=== PATIENT | male | born 1975 | race Hispanic/Latino ===

== ENCOUNTER 2020-06-03 02:33 | Inpatient (IN) | payer OTHER ==
[2020-06-03] VITALS (22 sets, daily range): BP systolic 107–129; BP diastolic 56–88
[~2020-06-03] VITALS: Ht 177.8 cm; Wt 113.9 kg
[2020-06-03] MEDS ORDERED: AZITHROMYCIN 500MG/NS 250 ML 250 ML IV STA (02:38)
[2020-06-03] MEDS ORDERED: KETOROLAC TROMETHAMINE 30 MG/ML VIAL IV STA (02:38)
[2020-06-03] MEDS ORDERED: DEXAMETHASONE SOD PHOS 10 MG/1 ML VIAL IV ONE (02:45)
[2020-06-03] MEDS ORDERED: CEFTRIAXONE SOD 1 GM/50 ML BAG IV ONE (02:45)
[2020-06-03] MEDS ORDERED: ACETAMINOPHEN 325 MG TAB PO ONE (02:45)
[2020-06-03 02:52] LABS: BASOPHILS % 0.1 % (0.0-1.0); HEMATOCRIT 42.9 % (38.2-49.6); HEMOGLOBIN 14.4 g/dL (14.0-18.0); LYMPHOCYTES # (AUTO) 0.6 (1.0-3.2); LYMPHOCYTES % 7.5 % (18.0-39.1); MEAN CORPUSCULAR HEMOGLOBIN 29.3 pg (28-32); MEAN CORPUSCULAR HGB CONC 33.6 g/dL (31-35); MEAN CORPUSCULAR VOLUME 87.2 fL (81-99); MONOCYTES # (AUTO) 0.3 (0.2-0.8); MONOCYTES % 4.5 % (4.4-11.3); NEUTROPHILS # (AUTO) 6.4 (2.1-6.9); NEUTROPHILS % 87.5 % (38.7-80.0); PLATELET COUNT 265 x10e3/uL (140-360); RED BLOOD COUNT 4.92 x10e6/uL (4.3-5.7); RED CELL DISTRIBUTION WIDTH 13.4 % (11.7-14.4)
[2020-06-03] MEDS ORDERED: SODIUM CHLORIDE 0.9% 50ML 50 ML ONE ×2 (03:04→07:28)
[2020-06-03] MEDS ORDERED: CEFTRIAXONE SOD 1 GM VIAL ONE (03:04)
[2020-06-03 03:11] LABS: ALANINE AMINOTRANSFERASE 39 IU/L (0-55); ALBUMIN 2.8 g/dL (3.5-5.0); ALBUMIN/GLOBULIN RATIO 0.5 (0.8-2.0); ALKALINE PHOSPHATASE 78 IU/L (40-150); ANION GAP 14.3 mmol/L (8-16); BLOOD UREA NITROGEN 6 mg/dL (7-26); BUN/CREATININE RATIO 7 (6-25); CARBON DIOXIDE 28 mmol/L (22-29); CHLORIDE 95 mmol/L (98-107); CREATININE, SERUM 0.92 mg/dL (0.72-1.25); EST GLOMERULAR FILTRATION RATE > 60 ML/MIN (60-); GLUCOSE 149 mg/dL (74-118); POTASSIUM 3.3 mmol/L (3.5-5.1); SODIUM 134 mmol/L (136-145)
[2020-06-03 03:15] LABS: B-TYPE NATRIURETIC PEPTIDE2 45.5 pg/mL (0-100)
[2020-06-03] MEDS ORDERED: ONDANSETRON HCL INJ 2MG/ML 2ML 2 MG/ML VIAL IV STA ×2 (03:39→06:20)
[2020-06-03] MEDS ORDERED: DONNATAL/LIDOCAINE/MAALOX 30 ML SUSP PO STA (03:39)
[2020-06-03] MEDS ORDERED: FENTANYL CITRATE/PF 100MCG/2 ML INJ IV ONE (03:45)
[2020-06-03] MEDS ORDERED: FENTANYL CITRATE/PF 100MCG/2 ML INJ ONE (03:50)
[2020-06-03] MEDS ORDERED: ONDANSETRON HCL INJ 2MG/ML 2ML 2 MG/ML VIAL ONE (03:51)
[2020-06-03] MEDS ORDERED: ENOXAPARIN SOD INJ 60 MG/0.6 ML SYR SC STA (04:55)
[2020-06-03 05:33] LABS: INR 0.93
[2020-06-03 05:34] LABS: PARTIAL THROMBOPLASTIN TIME 39.1 seconds (23.8-35.5)
[2020-06-03 05:39] LABS: AMYLASE 71 U/L (25-125); LIPASE 91 U/L (8-78)
[2020-06-03] MEDS ORDERED: ENOXAPARIN SOD INJ 40 MG/0.4 ML SYR SC STA (06:18)
[2020-06-03] MEDS: METOCLOPRAMIDE HCL 10 MG TAB PO SCH ×3 (06:30→17:34)
[2020-06-03] MEDS ORDERED: ENOXAPARIN SOD INJ 40 MG/0.4 ML SYR SC ONE (06:31)
[2020-06-03] MEDS ORDERED: IOPAMIDOL 370 MG/ML 200 ML INFUS..BTL INJ ONE (07:28)
[2020-06-03] MEDS: DICYCLOMINE HCL 20 MG TAB PO SCH ×4 (09:28→20:30)
[2020-06-03] MEDS ORDERED: CEFTRIAXONE SOD 1 GM/50 ML BAG IV SCH (10:45)
[2020-06-03] MEDS: CEFTRIAXONE SOD 1 GM in SODIUM CHLORIDE 0.9% 50ML 50 ML IV SCH (11:53)
[2020-06-03] MEDS: DEXAMETHASONE SOD PHOS 10 MG/1 ML VIAL IV SCH (12:21)
[2020-06-03] MEDS: AZITHROMYCIN 500MG/NS 250 ML 250 ML IV SCH (12:21)
[2020-06-03] MEDS ORDERED: ZOLPIDEM TARTRATE 5 MG TAB PO PRN (13:00)
[2020-06-03] MEDS ORDERED: REMDESIVIR 200MG/NS 100ML 200 MG in SODIUM CHLORIDE 0.9% 100 ML 100 ML IV ONE (15:00)
[2020-06-03] MEDS: ENOXAPARIN SODIUM INJ 100 MG/ML SYR SC SCH (17:34)
[2020-06-03] MEDS: ASCORBIC ACID 500 MG TAB PO SCH (17:34)
[2020-06-03] MEDS: GUAIFENESIN/CODEINE 10 ML CUP PO PRN (18:18)
[2020-06-04] VITALS (20 sets, daily range): BP systolic 104–138; BP diastolic 54–101
[2020-06-04] MEDS: METOCLOPRAMIDE HCL 10 MG TAB PO SCH ×4 (00:13→17:16)
[2020-06-04] MEDS: CEFTRIAXONE SOD 1 GM in SODIUM CHLORIDE 0.9% 50ML 50 ML IV SCH ×3 (00:13→23:19)
[2020-06-04] MEDS: ENOXAPARIN SODIUM INJ 100 MG/ML SYR SC SCH ×2 (05:53→17:16)
[2020-06-04 08:22] LABS: BASOPHILS % 0.1 % (0.0-1.0); HEMATOCRIT 40.4 % (38.2-49.6); HEMOGLOBIN 13.4 g/dL (14.0-18.0); LYMPHOCYTES # (AUTO) 0.6 (1.0-3.2); MEAN CORPUSCULAR HEMOGLOBIN 28.9 pg (28-32); MEAN CORPUSCULAR HGB CONC 33.2 g/dL (31-35); MEAN CORPUSCULAR VOLUME 87.1 fL (81-99); MONOCYTES # (AUTO) 0.7 (0.2-0.8); MONOCYTES % 6.4 % (4.4-11.3); NEUTROPHILS # (AUTO) 9.2 (2.1-6.9); NEUTROPHILS % 86.7 % (38.7-80.0); PLATELET COUNT 328 x10e3/uL (140-360); RED BLOOD COUNT 4.64 x10e6/uL (4.3-5.7); RED CELL DISTRIBUTION WIDTH 13.8 % (11.7-14.4)
[2020-06-04] MEDS: DICYCLOMINE HCL 20 MG TAB PO SCH ×4 (08:34→20:44)
[2020-06-04] MEDS: ASCORBIC ACID 500 MG TAB PO SCH ×2 (08:34→17:16)
[2020-06-04] MEDS: ZINC SULFATE 220 MG CAP PO SCH (08:34)
[2020-06-04] MEDS: DEXAMETHASONE SOD PHOS 10 MG/1 ML VIAL IV SCH (08:34)
[2020-06-04 08:38] LABS: ALANINE AMINOTRANSFERASE 34 IU/L (0-55); ALBUMIN 2.3 g/dL (3.5-5.0); ALBUMIN/GLOBULIN RATIO 0.5 (0.8-2.0); ALKALINE PHOSPHATASE 65 IU/L (40-150); BLOOD UREA NITROGEN 11 mg/dL (7-26); BUN/CREATININE RATIO 14 (6-25); CALCIUM 8.1 mg/dL (8.4-10.2); CARBON DIOXIDE 25 mmol/L (22-29); CHLORIDE 100 mmol/L (98-107); CREATININE, SERUM 0.77 mg/dL (0.72-1.25); EST GLOMERULAR FILTRATION RATE > 60 ML/MIN (60-); GLUCOSE 147 mg/dL (74-118); SODIUM 136 mmol/L (136-145)
[2020-06-04 09:00] LABS: CREATINE KINASE MB 0.5 ng/mL (0-5.0)
[2020-06-04] MEDS: AZITHROMYCIN 500MG/NS 250 ML 250 ML IV SCH (12:30)
[2020-06-04] MEDS: GUAIFENESIN/CODEINE 10 ML CUP PO PRN ×4 (12:45→17:50)
[2020-06-04] MEDS: REMDESIVIR 100MG/NS 100ML 100 MG in SODIUM CHLORIDE 0.9% 100 ML 100 ML IV SCH (15:31)
[2020-06-05] VITALS (19 sets, daily range): BP systolic 107–132; BP diastolic 64–83
[2020-06-05] MEDS: METOCLOPRAMIDE HCL 10 MG TAB PO SCH ×5 (00:04→23:51)
[2020-06-05] MEDS: GUAIFENESIN/CODEINE 10 ML CUP PO PRN ×3 (01:00→20:57)
[2020-06-05] MEDS: ENOXAPARIN SODIUM INJ 100 MG/ML SYR SC SCH ×2 (06:29→18:01)
[2020-06-05 07:27] LABS: BASOPHILS % 0.2 % (0.0-1.0); HEMATOCRIT 39.2 % (38.2-49.6); HEMOGLOBIN 12.8 g/dL (14.0-18.0); LYMPHOCYTES # (AUTO) 0.8 (1.0-3.2); LYMPHOCYTES % 6.4 % (18.0-39.1); MEAN CORPUSCULAR HEMOGLOBIN 29.2 pg (28-32); MEAN CORPUSCULAR HGB CONC 32.7 g/dL (31-35); MEAN CORPUSCULAR VOLUME 89.5 fL (81-99); MONOCYTES # (AUTO) 0.9 (0.2-0.8); MONOCYTES % 6.7 % (4.4-11.3); NEUTROPHILS # (AUTO) 11.1 (2.1-6.9); NEUTROPHILS % 85.6 % (38.7-80.0); PLATELET COUNT 333 x10e3/uL (140-360); RED BLOOD COUNT 4.38 x10e6/uL (4.3-5.7); RED CELL DISTRIBUTION WIDTH 13.8 % (11.7-14.4)
[2020-06-05 07:33] LABS: ALANINE AMINOTRANSFERASE 37 IU/L (0-55); ALBUMIN 2.3 g/dL (3.5-5.0); ALBUMIN/GLOBULIN RATIO 0.5 (0.8-2.0); ALKALINE PHOSPHATASE 72 IU/L (40-150); ANION GAP 15.1 mmol/L (8-16); BLOOD UREA NITROGEN 22 mg/dL (7-26); BUN/CREATININE RATIO 30 (6-25); CALCIUM 7.8 mg/dL (8.4-10.2); CARBON DIOXIDE 28 mmol/L (22-29); CHLORIDE 101 mmol/L (98-107); CREATININE, SERUM 0.73 mg/dL (0.72-1.25); EST GLOMERULAR FILTRATION RATE > 60 ML/MIN (60-); GLUCOSE 142 mg/dL (74-118); POTASSIUM 4.1 mmol/L (3.5-5.1); SODIUM 140 mmol/L (136-145)
[2020-06-05 08:06] LABS: CREATINE KINASE MB 1.3 ng/mL (0-5.0)
[2020-06-05] MEDS ORDERED: LACTATED RINGER'S 1,000 ML INJ ONE (10:00)
[2020-06-05] MEDS: ZINC SULFATE 220 MG CAP PO SCH (10:04)
[2020-06-05] MEDS: DEXAMETHASONE SOD PHOS 10 MG/1 ML VIAL IV SCH (10:04)
[2020-06-05] MEDS: ASCORBIC ACID 500 MG TAB PO SCH ×2 (10:04→18:01)
[2020-06-05] MEDS: DICYCLOMINE HCL 20 MG TAB PO SCH ×4 (10:04→20:59)
[2020-06-05] MEDS: AZITHROMYCIN 500MG/NS 250 ML 250 ML IV SCH (11:05)
[2020-06-05] MEDS: PIPERACILLIN/TAZOBAC 3.375 GM in SODIUM CHLORIDE 0.9% 50ML 50 ML IV SCH ×3 (14:26→23:51)
[2020-06-05] MEDS: REMDESIVIR 100MG/NS 100ML 100 MG in SODIUM CHLORIDE 0.9% 100 ML 100 ML IV SCH (15:03)
[2020-06-06] VITALS (25 sets, daily range): BP systolic 110–138; BP diastolic 45–91
[2020-06-06] MEDS: GUAIFENESIN/CODEINE 10 ML CUP PO PRN ×2 (03:00→20:07)
[2020-06-06] MEDS: PIPERACILLIN/TAZOBAC 3.375 GM in SODIUM CHLORIDE 0.9% 50ML 50 ML IV SCH ×4 (06:31→23:13)
[2020-06-06] MEDS: ENOXAPARIN SODIUM INJ 100 MG/ML SYR SC SCH ×2 (06:45→16:40)
[2020-06-06] MEDS: METOCLOPRAMIDE HCL 10 MG TAB PO SCH ×4 (06:45→23:13)
[2020-06-06 07:05] LABS: BASOPHILS % 0.3 % (0.0-1.0); EOSINOPHILS % 0.2 % (0.0-6.0); HEMATOCRIT 38.1 % (38.2-49.6); HEMOGLOBIN 12.4 g/dL (14.0-18.0); LYMPHOCYTES # (AUTO) 1.1 (1.0-3.2); LYMPHOCYTES % 8.8 % (18.0-39.1); MEAN CORPUSCULAR HGB CONC 32.5 g/dL (31-35); MONOCYTES # (AUTO) 0.9 (0.2-0.8); MONOCYTES % 7.1 % (4.4-11.3); NEUTROPHILS # (AUTO) 9.9 (2.1-6.9); NEUTROPHILS % 81.3 % (38.7-80.0); PLATELET COUNT 396 x10e3/uL (140-360); RED BLOOD COUNT 4.28 x10e6/uL (4.3-5.7); RED CELL DISTRIBUTION WIDTH 13.6 % (11.7-14.4)
[2020-06-06 07:44] LABS: ALANINE AMINOTRANSFERASE 64 IU/L (0-55); ALBUMIN 2.3 g/dL (3.5-5.0); ALBUMIN/GLOBULIN RATIO 0.5 (0.8-2.0); ALKALINE PHOSPHATASE 64 IU/L (40-150); ANION GAP 13.6 mmol/L (8-16); BLOOD UREA NITROGEN 17 mg/dL (7-26); BUN/CREATININE RATIO 23 (6-25); CARBON DIOXIDE 27 mmol/L (22-29); CHLORIDE 103 mmol/L (98-107); CREATININE, SERUM 0.73 mg/dL (0.72-1.25); EST GLOMERULAR FILTRATION RATE > 60 ML/MIN (60-); GLUCOSE 132 mg/dL (74-118); POTASSIUM 4.6 mmol/L (3.5-5.1); SODIUM 139 mmol/L (136-145)
[2020-06-06] MEDS: DICYCLOMINE HCL 20 MG TAB PO SCH ×4 (10:27→20:07)
[2020-06-06] MEDS: DEXAMETHASONE SOD PHOS 10 MG/1 ML VIAL IV SCH (10:27)
[2020-06-06] MEDS: ZINC SULFATE 220 MG CAP PO SCH (10:27)
[2020-06-06] MEDS: ASCORBIC ACID 500 MG TAB PO SCH ×2 (10:27→16:40)
[2020-06-06] MEDS: AZITHROMYCIN 500MG/NS 250 ML 250 ML IV SCH (11:57)
[2020-06-06] MEDS: REMDESIVIR 100MG/NS 100ML 100 MG in SODIUM CHLORIDE 0.9% 100 ML 100 ML IV SCH (15:56)
[2020-06-07] VITALS (25 sets, daily range): BP systolic 100–143; BP diastolic 62–83
[2020-06-07] MEDS: METOCLOPRAMIDE HCL 10 MG TAB PO SCH ×4 (05:42→23:22)
[2020-06-07] MEDS: PIPERACILLIN/TAZOBAC 3.375 GM in SODIUM CHLORIDE 0.9% 50ML 50 ML IV SCH ×4 (05:42→23:22)
[2020-06-07] MEDS: ENOXAPARIN SODIUM INJ 100 MG/ML SYR SC SCH ×2 (05:42→17:13)
[2020-06-07] MEDS: DEXAMETHASONE SOD PHOS 10 MG/1 ML VIAL IV SCH (08:08)
[2020-06-07] MEDS: ASCORBIC ACID 500 MG TAB PO SCH ×2 (08:08→16:11)
[2020-06-07] MEDS: DICYCLOMINE HCL 20 MG TAB PO SCH ×4 (08:08→20:22)
[2020-06-07] MEDS: ZINC SULFATE 220 MG CAP PO SCH (08:08)
[2020-06-07] MEDS: GUAIFENESIN/CODEINE 10 ML CUP PO PRN (08:09)
[2020-06-07] MEDS: AZITHROMYCIN 500MG/NS 250 ML 250 ML IV SCH (12:06)
[2020-06-07] MEDS: REMDESIVIR 100MG/NS 100ML 100 MG in SODIUM CHLORIDE 0.9% 100 ML 100 ML IV SCH (15:04)
[2020-06-08] VITALS (24 sets, daily range): BP systolic 96–129; BP diastolic 54–80
[2020-06-08] MEDS: ENOXAPARIN SODIUM INJ 100 MG/ML SYR SC SCH ×2 (05:56→17:15)
[2020-06-08] MEDS: METOCLOPRAMIDE HCL 10 MG TAB PO SCH ×4 (05:56→23:29)
[2020-06-08] MEDS: PIPERACILLIN/TAZOBAC 3.375 GM in SODIUM CHLORIDE 0.9% 50ML 50 ML IV SCH ×4 (05:56→23:29)
[2020-06-08] MEDS: ASCORBIC ACID 500 MG TAB PO SCH ×2 (08:18→16:14)
[2020-06-08] MEDS: DICYCLOMINE HCL 20 MG TAB PO SCH ×4 (08:18→21:11)
[2020-06-08] MEDS: DEXAMETHASONE SOD PHOS 10 MG/1 ML VIAL IV SCH (08:18)
[2020-06-08] MEDS: ZINC SULFATE 220 MG CAP PO SCH (08:18)
[2020-06-08] MEDS: AZITHROMYCIN 500MG/NS 250 ML 250 ML IV SCH (11:25)
[2020-06-08] MEDS: GUAIFENESIN/CODEINE 10 ML CUP PO PRN ×2 (11:33→17:43)
[2020-06-09] VITALS (25 sets, daily range): BP systolic 95–147; BP diastolic 48–99
[2020-06-09] MEDS: ENOXAPARIN SODIUM INJ 100 MG/ML SYR SC SCH ×2 (05:52→17:21)
[2020-06-09] MEDS: PIPERACILLIN/TAZOBAC 3.375 GM in SODIUM CHLORIDE 0.9% 50ML 50 ML IV SCH ×4 (05:52→23:29)
[2020-06-09] MEDS: METOCLOPRAMIDE HCL 10 MG TAB PO SCH ×4 (05:52→23:29)
[2020-06-09 06:18] LABS: BASOPHILS # (AUTO) 0.1 (0.0-0.1); BASOPHILS % 0.5 % (0.0-1.0); EOSINOPHILS # (AUTO) 0.2 (0.0-0.4); EOSINOPHILS % 0.9 % (0.0-6.0); HEMATOCRIT 36.1 % (38.2-49.6); HEMOGLOBIN 11.9 g/dL (14.0-18.0); LYMPHOCYTES # (AUTO) 1.4 (1.0-3.2); LYMPHOCYTES % 8.3 % (18.0-39.1); MEAN CORPUSCULAR HEMOGLOBIN 29.6 pg (28-32); MEAN CORPUSCULAR VOLUME 89.8 fL (81-99); MONOCYTES # (AUTO) 1.5 (0.2-0.8); MONOCYTES % 8.9 % (4.4-11.3); NEUTROPHILS # (AUTO) 12.8 (2.1-6.9); NEUTROPHILS % 75.4 % (38.7-80.0); PLATELET COUNT 485 x10e3/uL (140-360); RED BLOOD COUNT 4.02 x10e6/uL (4.3-5.7); RED CELL DISTRIBUTION WIDTH 13.7 % (11.7-14.4)
[2020-06-09 06:51] LABS: ALANINE AMINOTRANSFERASE 77 IU/L (0-55); ALBUMIN 2.2 g/dL (3.5-5.0); ALBUMIN/GLOBULIN RATIO 0.5 (0.8-2.0); ALKALINE PHOSPHATASE 86 IU/L (40-150); ANION GAP 12.4 mmol/L (8-16); BLOOD UREA NITROGEN 21 mg/dL (7-26); BUN/CREATININE RATIO 27 (6-25); CALCIUM 8.3 mg/dL (8.4-10.2); CARBON DIOXIDE 26 mmol/L (22-29); CHLORIDE 104 mmol/L (98-107); CREATININE, SERUM 0.77 mg/dL (0.72-1.25); EST GLOMERULAR FILTRATION RATE > 60 ML/MIN (60-); GLUCOSE 109 mg/dL (74-118); POTASSIUM 4.4 mmol/L (3.5-5.1); SODIUM 138 mmol/L (136-145)
[2020-06-09] MEDS: ASCORBIC ACID 500 MG TAB PO SCH ×2 (10:13→17:21)
[2020-06-09] MEDS: DICYCLOMINE HCL 20 MG TAB PO SCH ×4 (10:13→20:03)
[2020-06-09] MEDS: ZINC SULFATE 220 MG CAP PO SCH (10:13)
[2020-06-09] MEDS: DEXAMETHASONE SOD PHOS 10 MG/1 ML VIAL IV SCH (10:13)
[2020-06-09] MEDS ORDERED: LACTATED RINGER'S 500 ML INJ ONE (14:15)
[2020-06-09] MEDS: AZITHROMYCIN 500MG/NS 250 ML 250 ML IV SCH (14:19)
[2020-06-10] VITALS (21 sets, daily range): BP systolic 97–117; BP diastolic 61–81
[2020-06-10] MEDS: METOCLOPRAMIDE HCL 10 MG TAB PO SCH ×4 (05:47→23:48)
[2020-06-10] MEDS: ENOXAPARIN SODIUM INJ 100 MG/ML SYR SC SCH ×2 (05:47→18:59)
[2020-06-10] MEDS: PIPERACILLIN/TAZOBAC 3.375 GM in SODIUM CHLORIDE 0.9% 50ML 50 ML IV SCH ×4 (05:47→23:48)
[2020-06-10 06:14] LABS: BASOPHILS % 0.3 % (0.0-1.0); EOSINOPHILS # (AUTO) 0.1 (0.0-0.4); EOSINOPHILS % 0.6 % (0.0-6.0); HEMATOCRIT 36.5 % (38.2-49.6); HEMOGLOBIN 11.8 g/dL (14.0-18.0); LYMPHOCYTES # (AUTO) 1.7 (1.0-3.2); LYMPHOCYTES % 10.6 % (18.0-39.1); MEAN CORPUSCULAR HEMOGLOBIN 29.5 pg (28-32); MEAN CORPUSCULAR HGB CONC 32.3 g/dL (31-35); MEAN CORPUSCULAR VOLUME 91.3 fL (81-99); MONOCYTES # (AUTO) 1.3 (0.2-0.8); MONOCYTES % 8.3 % (4.4-11.3); NEUTROPHILS # (AUTO) 11.7 (2.1-6.9); NEUTROPHILS % 75.2 % (38.7-80.0); PLATELET COUNT 433 x10e3/uL (140-360); RED CELL DISTRIBUTION WIDTH 13.8 % (11.7-14.4)
[2020-06-10 06:44] LABS: ALANINE AMINOTRANSFERASE 65 IU/L (0-55); ALBUMIN 2.3 g/dL (3.5-5.0); ALBUMIN/GLOBULIN RATIO 0.5 (0.8-2.0); ALKALINE PHOSPHATASE 87 IU/L (40-150); ANION GAP 11.2 mmol/L (8-16); BLOOD UREA NITROGEN 21 mg/dL (7-26); BUN/CREATININE RATIO 30 (6-25); CALCIUM 8.1 mg/dL (8.4-10.2); CARBON DIOXIDE 25 mmol/L (22-29); CHLORIDE 103 mmol/L (98-107); EST GLOMERULAR FILTRATION RATE > 60 ML/MIN (60-); GLUCOSE 107 mg/dL (74-118); POTASSIUM 4.2 mmol/L (3.5-5.1); SODIUM 135 mmol/L (136-145)
[2020-06-10] MEDS: DICYCLOMINE HCL 20 MG TAB PO SCH ×4 (08:04→20:14)
[2020-06-10] MEDS: DEXAMETHASONE SOD PHOS 10 MG/1 ML VIAL IV SCH (08:04)
[2020-06-10] MEDS: ASCORBIC ACID 500 MG TAB PO SCH ×2 (08:04→18:59)
[2020-06-10] MEDS: ZINC SULFATE 220 MG CAP PO SCH (08:04)
[2020-06-10] MEDS: GUAIFENESIN/CODEINE 10 ML CUP PO PRN ×2 (09:00→20:14)
[2020-06-10] MEDS ORDERED: CALCIUM CARBONATE 500 MG CHEWABLE TABS PO PRN (10:00)
[2020-06-10] MEDS: AZITHROMYCIN 500MG/NS 250 ML 250 ML IV SCH (12:00)
[2020-06-10] MEDS: PANTOPRAZOLE 40 MG 10ML VIAL IV SCH (13:15)
[2020-06-11] VITALS (18 sets, daily range): BP systolic 89–126; BP diastolic 39–84
[2020-06-11] MEDS: METOCLOPRAMIDE HCL 10 MG TAB PO SCH ×3 (05:25→17:46)
[2020-06-11] MEDS: PIPERACILLIN/TAZOBAC 3.375 GM in SODIUM CHLORIDE 0.9% 50ML 50 ML IV SCH ×3 (05:25→17:46)
[2020-06-11] MEDS: ENOXAPARIN SODIUM INJ 100 MG/ML SYR SC SCH (06:00)
[2020-06-11 06:49] LABS: BASOPHILS # (AUTO) 0.1 (0.0-0.1); BASOPHILS % 0.3 % (0.0-1.0); EOSINOPHILS % 0.1 % (0.0-6.0); HEMATOCRIT 28.7 % (38.2-49.6); HEMOGLOBIN 9.5 g/dL (14.0-18.0); LYMPHOCYTES # (AUTO) 3.1 (1.0-3.2); LYMPHOCYTES % 8.1 % (18.0-39.1); MEAN CORPUSCULAR HEMOGLOBIN 30.6 pg (28-32); MEAN CORPUSCULAR HGB CONC 33.1 g/dL (31-35); MEAN CORPUSCULAR VOLUME 92.6 fL (81-99); MONOCYTES # (AUTO) 3.1 (0.2-0.8); MONOCYTES % 7.9 % (4.4-11.3); NEUTROPHILS # (AUTO) 29.1 (2.1-6.9); NEUTROPHILS % 75.7 % (38.7-80.0); PLATELET COUNT 709 x10e3/uL (140-360)
[2020-06-11 07:13] LABS: ALBUMIN 2.2 g/dL (3.5-5.0); ALBUMIN/GLOBULIN RATIO 0.5 (0.8-2.0); ANION GAP 14.7 mmol/L (8-16); CALCIUM 8.1 mg/dL (8.4-10.2); CREATININE, SERUM 1.54 mg/dL (0.72-1.25); POTASSIUM 4.7 mmol/L (3.5-5.1)
[2020-06-11] MEDS ORDERED: SODIUM CHLORIDE 0.9% 250ML 250 ML IV ONE (08:15)
[2020-06-11] MEDS ORDERED: HEPARIN 25,000 UNIT 1,500 UNIT in DEXTROSE 5% 250ML 250 ML IV SCH (08:45)
[2020-06-11 08:46] LABS: BASOPHILS # (AUTO) 0.2 (0.0-0.1); BASOPHILS % 0.4 % (0.0-1.0); HEMATOCRIT 24.7 % (38.2-49.6); HEMOGLOBIN 7.9 g/dL (14.0-18.0); LYMPHOCYTES # (AUTO) 3.4 (1.0-3.2); LYMPHOCYTES % 8.3 % (18.0-39.1); MEAN CORPUSCULAR HEMOGLOBIN 29.7 pg (28-32); MEAN CORPUSCULAR VOLUME 92.9 fL (81-99); MONOCYTES # (AUTO) 2.9 (0.2-0.8); NEUTROPHILS # (AUTO) 31.2 (2.1-6.9); NEUTROPHILS % 75.1 % (38.7-80.0); PLATELET COUNT 647 x10e3/uL (140-360); RED BLOOD COUNT 2.66 x10e6/uL (4.3-5.7); RED CELL DISTRIBUTION WIDTH 14.1 % (11.7-14.4)
[2020-06-11] MEDS ORDERED: LACTATED RINGER'S 2,000 ML ONE (08:49)
[2020-06-11] MEDS ORDERED: VANCOMYCIN 250MG/5ML ORAL SOLN PO SCH (09:00)
[2020-06-11] MEDS ORDERED: PANTOPRAZOLE 40 MG 10ML VIAL IV SCH (09:00)
[2020-06-11] MEDS ORDERED: ALTEPLASE RECOMBINANT 2 MG/2 ML VIAL IV PRN (09:15)
[2020-06-11 10:31] LABS: % IRON SATURATION 75 % (15-50); IRON 159 ug/dL (65-175); TOTAL IRON BINDING CAPACITY 211 ug/dL (261-478); TRANSFERRIN 151 mg/dL (174-364)
[2020-06-11 11:01] LABS: INR 1.39
[2020-06-11] MEDS: METRONIDAZOLE 500MG/NS 100ML 100 ML IV SCH ×3 (11:02→23:03)
[2020-06-11] MEDS: PANTOPRAZOLE 40 MG 10ML VIAL IV SCH (11:02)
[2020-06-11] MEDS: ZINC SULFATE 220 MG CAP PO SCH (11:02)
[2020-06-11] MEDS: VANCOMYCIN HCL 125 MG CAPSULE PO SCH ×3 (11:02→22:09)
[2020-06-11] MEDS: ASCORBIC ACID 500 MG TAB PO SCH ×2 (11:02→17:46)
[2020-06-11] MEDS: GUAIFENESIN/CODEINE 10 ML CUP PO PRN (11:13)
[2020-06-11] MEDS: PANTOPRAZOLE INJ 40 MG in SODIUM CHLORIDE 0.9% 50ML 50 ML IV SCH ×3 (12:03→22:15)
[2020-06-11] MEDS: AZITHROMYCIN 500MG/NS 250 ML 250 ML IV SCH (12:39)
[2020-06-11 15:30] LABS: BASOPHILS # (AUTO) 0.1 (0.0-0.1); BASOPHILS % 0.4 % (0.0-1.0); HEMOGLOBIN 9.5 g/dL (14.0-18.0); LYMPHOCYTES # (AUTO) 2.8 (1.0-3.2); LYMPHOCYTES % 8.9 % (18.0-39.1); MEAN CORPUSCULAR HEMOGLOBIN 28.9 pg (28-32); MEAN CORPUSCULAR HGB CONC 32.8 g/dL (31-35); MEAN CORPUSCULAR VOLUME 88.1 fL (81-99); MONOCYTES # (AUTO) 2.1 (0.2-0.8); MONOCYTES % 6.8 % (4.4-11.3); NEUTROPHILS # (AUTO) 23.7 (2.1-6.9); NEUTROPHILS % 76.3 % (38.7-80.0); PLATELET COUNT 450 x10e3/uL (140-360); RED BLOOD COUNT 3.29 x10e6/uL (4.3-5.7); RED CELL DISTRIBUTION WIDTH 14.2 % (11.7-14.4)
[2020-06-11 16:53] LABS: BAND NEUTROPHILS % (MANUAL) 1 %; LYMPHOCYTES % (MANUAL) 4 % (19-48); MONOCYTES % (MANUAL) 10 % (3.4-9.0); NEUTROPHILS % (MANUAL) 78 % (40-74); PLATELET ESTIMATE SLIGHTLY INCREASED; PLATELET MORPHOLOGY COMMENT FEW LARGE; RBC MORPHOLOGY COMMENT NORMAL
[2020-06-11] MEDS ORDERED: ONDANSETRON HCL INJ 2MG/ML 2ML 2 MG/ML VIAL IV STA (18:05)
[2020-06-11] MEDS: SODIUM CHLORIDE 0.9% 1000ML 1,000 ML IV SCH (19:15)
[2020-06-11 21:08] LABS: BASOPHILS # (AUTO) 0.2 (0.0-0.1); BASOPHILS % 0.5 % (0.0-1.0); HEMOGLOBIN 10.6 g/dL (14.0-18.0); LYMPHOCYTES # (AUTO) 3.1 (1.0-3.2); LYMPHOCYTES % 8.6 % (18.0-39.1); MEAN CORPUSCULAR HEMOGLOBIN 29.1 pg (28-32); MEAN CORPUSCULAR HGB CONC 33.1 g/dL (31-35); MEAN CORPUSCULAR VOLUME 87.9 fL (81-99); MONOCYTES # (AUTO) 2.4 (0.2-0.8); MONOCYTES % 6.7 % (4.4-11.3); NEUTROPHILS # (AUTO) 27.7 (2.1-6.9); NEUTROPHILS % 77.7 % (38.7-80.0); PLATELET COUNT 536 x10e3/uL (140-360); RED BLOOD COUNT 3.64 x10e6/uL (4.3-5.7); RED CELL DISTRIBUTION WIDTH 14.7 % (11.7-14.4)
[2020-06-11] MEDS: ZOLPIDEM TARTRATE 5 MG TAB PO PRN (21:25)
[2020-06-11] MEDS: ACETAMINOPHEN 325 MG TAB PO PRN (21:25)
[2020-06-11 21:32] LABS: ALANINE AMINOTRANSFERASE 54 IU/L (0-55); ALBUMIN 2.3 g/dL (3.5-5.0); ALBUMIN/GLOBULIN RATIO 0.6 (0.8-2.0); ALKALINE PHOSPHATASE 71 IU/L (40-150); ANION GAP 12.1 mmol/L (8-16); BLOOD UREA NITROGEN 53 mg/dL (7-26); BUN/CREATININE RATIO 42 (6-25); CALCIUM 7.8 mg/dL (8.4-10.2); CARBON DIOXIDE 21 mmol/L (22-29); CHLORIDE 115 mmol/L (98-107); CREATININE, SERUM 1.26 mg/dL (0.72-1.25); EST GLOMERULAR FILTRATION RATE > 60 ML/MIN (60-); GLUCOSE 219 mg/dL (74-118); POTASSIUM 4.1 mmol/L (3.5-5.1); SODIUM 144 mmol/L (136-145)
[2020-06-11] MEDS ORDERED: PHYTONADIONE 10MG/ML 2 ML ONE (22:15)
[2020-06-11] MEDS ORDERED: PHYTONADIONE 10 MG/ML AMP IV ONE (22:15)
[2020-06-11] MEDS ORDERED: SODIUM CHLORIDE 0.9% 50ML 50 ML ONE (22:24)
[2020-06-11] MEDS ORDERED: HYDROMORPHONE 1MG/1ML INJ IV PRN (23:15)
[2020-06-12] VITALS (23 sets, daily range): BP systolic 98–123; BP diastolic 58–81
[2020-06-12] MEDS: PIPERACILLIN/TAZOBAC 3.375 GM in SODIUM CHLORIDE 0.9% 50ML 50 ML IV SCH ×5 (00:30→23:53)
[2020-06-12] MEDS: METOCLOPRAMIDE HCL 10 MG TAB PO SCH ×5 (00:30→23:57)
[2020-06-12] MEDS: PANTOPRAZOLE INJ 40 MG in SODIUM CHLORIDE 0.9% 50ML 50 ML IV SCH ×4 (02:13→18:07)
[2020-06-12] MEDS: SODIUM CHLORIDE 0.9% 1000ML 1,000 ML IV SCH (05:21)
[2020-06-12] MEDS: VANCOMYCIN HCL 125 MG CAPSULE PO SCH ×3 (06:13→22:44)
[2020-06-12] MEDS: METRONIDAZOLE 500MG/NS 100ML 100 ML IV SCH ×3 (06:13→21:55)
[2020-06-12 06:18] LABS: BASOPHILS # (AUTO) 0.1 (0.0-0.1); BASOPHILS % 0.3 % (0.0-1.0); HEMATOCRIT 28.9 % (38.2-49.6); HEMOGLOBIN 9.5 g/dL (14.0-18.0); LYMPHOCYTES # (AUTO) 2.8 (1.0-3.2); LYMPHOCYTES % 9.3 % (18.0-39.1); MEAN CORPUSCULAR HEMOGLOBIN 29.7 pg (28-32); MEAN CORPUSCULAR HGB CONC 32.9 g/dL (31-35); MEAN CORPUSCULAR VOLUME 90.3 fL (81-99); MONOCYTES % 6.7 % (4.4-11.3); NEUTROPHILS # (AUTO) 23.1 (2.1-6.9); NEUTROPHILS % 77.8 % (38.7-80.0); PLATELET COUNT 478 x10e3/uL (140-360); RED CELL DISTRIBUTION WIDTH 14.9 % (11.7-14.4)
[2020-06-12 06:59] LABS: ALANINE AMINOTRANSFERASE 48 IU/L (0-55); ALBUMIN 2.3 g/dL (3.5-5.0); ALBUMIN/GLOBULIN RATIO 0.7 (0.8-2.0); ALKALINE PHOSPHATASE 69 IU/L (40-150); ANION GAP 11.1 mmol/L (8-16); BLOOD UREA NITROGEN 47 mg/dL (7-26); BUN/CREATININE RATIO 43 (6-25); CALCIUM 7.9 mg/dL (8.4-10.2); CARBON DIOXIDE 23 mmol/L (22-29); CHLORIDE 116 mmol/L (98-107); EST GLOMERULAR FILTRATION RATE > 60 ML/MIN (60-); GLUCOSE 170 mg/dL (74-118); POTASSIUM 4.1 mmol/L (3.5-5.1); SODIUM 146 mmol/L (136-145)
[2020-06-12] MEDS: PANTOPRAZOLE 40 MG 10ML VIAL IV SCH (07:33)
[2020-06-12] MEDS: ZINC SULFATE 220 MG CAP PO SCH (08:29)
[2020-06-12] MEDS: ASCORBIC ACID 500 MG TAB PO SCH ×2 (08:29→17:00)
[2020-06-12] MEDS ORDERED: CHLOROTHIAZIDE SODIUM 500 MG VIAL IV ONE (10:00)
[2020-06-12] MEDS: AZITHROMYCIN 500MG/NS 250 ML 250 ML IV SCH (12:49)
[2020-06-12] MEDS: GUAIFENESIN/CODEINE 10 ML CUP PO PRN (18:07)
[2020-06-12] MEDS: ACETAMINOPHEN 325 MG TAB PO PRN (21:06)
[2020-06-13] VITALS (28 sets, daily range): BP systolic 101–123; BP diastolic 61–90
[2020-06-13] MEDS: PANTOPRAZOLE INJ 40 MG in SODIUM CHLORIDE 0.9% 50ML 50 ML IV SCH ×6 (00:23→21:55)
[2020-06-13] MEDS: GUAIFENESIN/CODEINE 10 ML CUP PO PRN ×2 (03:35→21:25)
[2020-06-13] MEDS: METRONIDAZOLE 500MG/NS 100ML 100 ML IV SCH ×3 (05:29→21:45)
[2020-06-13 06:24] LABS: ALANINE AMINOTRANSFERASE 55 IU/L (0-55); ALBUMIN 2.3 g/dL (3.5-5.0); ALBUMIN/GLOBULIN RATIO 0.7 (0.8-2.0); ALKALINE PHOSPHATASE 64 IU/L (40-150); ANION GAP 11.7 mmol/L (8-16); BLOOD UREA NITROGEN 35 mg/dL (7-26); BUN/CREATININE RATIO 35 (6-25); CALCIUM 7.8 mg/dL (8.4-10.2); CARBON DIOXIDE 27 mmol/L (22-29); CHLORIDE 111 mmol/L (98-107); CREATININE, SERUM 0.99 mg/dL (0.72-1.25); EST GLOMERULAR FILTRATION RATE > 60 ML/MIN (60-); GLUCOSE 159 mg/dL (74-118); MAGNESIUM 2.3 MG/DL (1.3-2.1); POTASSIUM 3.7 mmol/L (3.5-5.1); SODIUM 146 mmol/L (136-145)
[2020-06-13] MEDS: PIPERACILLIN/TAZOBAC 3.375 GM in SODIUM CHLORIDE 0.9% 50ML 50 ML IV SCH ×3 (06:25→17:01)
[2020-06-13] MEDS: METOCLOPRAMIDE HCL 10 MG TAB PO SCH ×3 (06:25→17:01)
[2020-06-13] MEDS: VANCOMYCIN HCL 125 MG CAPSULE PO SCH ×3 (06:43→21:45)
[2020-06-13] MEDS: ASCORBIC ACID 500 MG TAB PO SCH ×2 (08:43→16:47)
[2020-06-13] MEDS: ZINC SULFATE 220 MG CAP PO SCH (08:43)
[2020-06-13] MEDS ORDERED: SODIUM CHLORIDE 0.9% 50ML 50 ML ONE ×2 (13:20→18:03)
[2020-06-13] MEDS: ZOLPIDEM TARTRATE 5 MG TAB PO PRN (21:56)
[2020-06-14] VITALS (25 sets, daily range): BP systolic 105–128; BP diastolic 61–77
[2020-06-14] MEDS: METOCLOPRAMIDE HCL 10 MG TAB PO SCH ×2 (00:14→06:08)
[2020-06-14] MEDS: PIPERACILLIN/TAZOBAC 3.375 GM in SODIUM CHLORIDE 0.9% 50ML 50 ML IV SCH ×5 (00:14→23:08)
[2020-06-14] MEDS: PANTOPRAZOLE INJ 40 MG in SODIUM CHLORIDE 0.9% 50ML 50 ML IV SCH ×5 (03:29→22:18)
[2020-06-14] MEDS: METRONIDAZOLE 500MG/NS 100ML 100 ML IV SCH ×3 (05:20→20:32)
[2020-06-14 05:58] LABS: BASOPHILS % 0.2 % (0.0-1.0); EOSINOPHILS # (AUTO) 0.2 (0.0-0.4); EOSINOPHILS % 0.8 % (0.0-6.0); HEMATOCRIT 23.4 % (38.2-49.6); HEMOGLOBIN 7.5 g/dL (14.0-18.0); LYMPHOCYTES # (AUTO) 2.3 (1.0-3.2); LYMPHOCYTES % 10.5 % (18.0-39.1); MEAN CORPUSCULAR HEMOGLOBIN 29.8 pg (28-32); MEAN CORPUSCULAR HGB CONC 32.1 g/dL (31-35); MEAN CORPUSCULAR VOLUME 92.9 fL (81-99); MONOCYTES # (AUTO) 1.5 (0.2-0.8); MONOCYTES % 6.6 % (4.4-11.3); NEUTROPHILS % 77.7 % (38.7-80.0); PLATELET COUNT 362 x10e3/uL (140-360); RED BLOOD COUNT 2.52 x10e6/uL (4.3-5.7); RED CELL DISTRIBUTION WIDTH 15.4 % (11.7-14.4)
[2020-06-14] MEDS: VANCOMYCIN HCL 125 MG CAPSULE PO SCH ×3 (06:08→20:32)
[2020-06-14 06:21] LABS: ALANINE AMINOTRANSFERASE 100 IU/L (0-55); ALBUMIN 2.3 g/dL (3.5-5.0); ALBUMIN/GLOBULIN RATIO 0.9 (0.8-2.0); ALKALINE PHOSPHATASE 69 IU/L (40-150); ANION GAP 10.3 mmol/L (8-16); BLOOD UREA NITROGEN 25 mg/dL (7-26); BUN/CREATININE RATIO 29 (6-25); CALCIUM 7.5 mg/dL (8.4-10.2); CARBON DIOXIDE 27 mmol/L (22-29); CHLORIDE 107 mmol/L (98-107); CREATININE, SERUM 0.86 mg/dL (0.72-1.25); EST GLOMERULAR FILTRATION RATE > 60 ML/MIN (60-); GLUCOSE 137 mg/dL (74-118); POTASSIUM 3.3 mmol/L (3.5-5.1); SODIUM 141 mmol/L (136-145)
[2020-06-14] MEDS: ZINC SULFATE 220 MG CAP PO SCH (08:05)
[2020-06-14] MEDS: ASCORBIC ACID 500 MG TAB PO SCH ×2 (08:05→16:01)
[2020-06-14] MEDS ORDERED: POTASSIUM CHLORIDE 10MEQ/100ML 400 ML IV ONE (09:30)
[2020-06-14] MEDS: METOCLOPRAMIDE HCL 10 MG/2ML VIAL IV SCH ×3 (09:30→20:32)
[2020-06-14] MEDS ORDERED: METOCLOPRAMIDE HCL 10 MG/2ML VIAL IV SCH (12:00)
[2020-06-14] MEDS: GUAIFENESIN/CODEINE 10 ML CUP PO PRN ×2 (12:20→20:33)
[2020-06-14] MEDS ORDERED: HEPARIN 25,000 UNIT 1,500 UNIT in DEXTROSE 5% 250ML 250 ML IV SCH ×4 (12:30)
[2020-06-14] MEDS: ENOXAPARIN SOD INJ 40 MG/0.4 ML SYR SC SCH (16:01)
[2020-06-14] MEDS ORDERED: PANTOPRAZOLE 40 MG 10ML VIAL ONE (19:49)
[2020-06-15] VITALS (23 sets, daily range): BP systolic 109–132; BP diastolic 61–88
[2020-06-15] MEDS: METOCLOPRAMIDE HCL 10 MG/2ML VIAL IV SCH ×4 (03:34→21:13)
[2020-06-15] MEDS: PANTOPRAZOLE INJ 40 MG in SODIUM CHLORIDE 0.9% 50ML 50 ML IV SCH ×5 (03:34→21:13)
[2020-06-15] MEDS ORDERED: PHYTONADIONE 10 MG/ML AMP IV ONE (04:00)
[2020-06-15 04:50] LABS: BASOPHILS % 0.1 % (0.0-1.0); EOSINOPHILS # (AUTO) 0.2 (0.0-0.4); EOSINOPHILS % 1.1 % (0.0-6.0); HEMATOCRIT 24.2 % (38.2-49.6); HEMOGLOBIN 7.9 g/dL (14.0-18.0); LYMPHOCYTES # (AUTO) 1.7 (1.0-3.2); LYMPHOCYTES % 10.5 % (18.0-39.1); MEAN CORPUSCULAR HEMOGLOBIN 30.3 pg (28-32); MEAN CORPUSCULAR HGB CONC 32.6 g/dL (31-35); MEAN CORPUSCULAR VOLUME 92.7 fL (81-99); MONOCYTES % 6.3 % (4.4-11.3); NEUTROPHILS # (AUTO) 12.4 (2.1-6.9); PLATELET COUNT 377 x10e3/uL (140-360); RED BLOOD COUNT 2.61 x10e6/uL (4.3-5.7); RED CELL DISTRIBUTION WIDTH 16.1 % (11.7-14.4)
[2020-06-15] MEDS: METRONIDAZOLE 500MG/NS 100ML 100 ML IV SCH ×3 (05:09→21:13)
[2020-06-15 05:10] LABS: INR 1.02
[2020-06-15 05:14] LABS: ALANINE AMINOTRANSFERASE 107 IU/L (0-55); ALBUMIN 2.3 g/dL (3.5-5.0); ALBUMIN/GLOBULIN RATIO 0.8 (0.8-2.0); ALKALINE PHOSPHATASE 75 IU/L (40-150); ANION GAP 9.6 mmol/L (8-16); BLOOD UREA NITROGEN 18 mg/dL (7-26); BUN/CREATININE RATIO 23 (6-25); CALCIUM 7.4 mg/dL (8.4-10.2); CARBON DIOXIDE 27 mmol/L (22-29); CHLORIDE 107 mmol/L (98-107); CREATININE, SERUM 0.79 mg/dL (0.72-1.25); EST GLOMERULAR FILTRATION RATE > 60 ML/MIN (60-); GLUCOSE 112 mg/dL (74-118); POTASSIUM 3.6 mmol/L (3.5-5.1); SODIUM 140 mmol/L (136-145)
[2020-06-15] MEDS: PIPERACILLIN/TAZOBAC 3.375 GM in SODIUM CHLORIDE 0.9% 50ML 50 ML IV SCH (05:38)
[2020-06-15] MEDS: VANCOMYCIN HCL 125 MG CAPSULE PO SCH ×3 (05:38→21:13)
[2020-06-15] MEDS: ZINC SULFATE 220 MG CAP PO SCH (08:03)
[2020-06-15] MEDS: SUCRALFATE 1 GM TAB PO SCH ×4 (08:03→20:37)
[2020-06-15] MEDS: ASCORBIC ACID 500 MG TAB PO SCH ×2 (08:03→16:45)
[2020-06-15] MEDS ORDERED: PHYTONADIONE 10MG/ML 20 MG in SODIUM CHLORIDE 0.9% 50ML 50 ML IV ONE (10:00)
[2020-06-15] MEDS: ENOXAPARIN SOD INJ 40 MG/0.4 ML SYR SC SCH (16:45)
[2020-06-15] MEDS: GUAIFENESIN/CODEINE 10 ML CUP PO PRN (20:37)
[2020-06-16] VITALS (24 sets, daily range): BP systolic 85–125; BP diastolic 55–87
[2020-06-16] MEDS: METOCLOPRAMIDE HCL 10 MG/2ML VIAL IV SCH ×4 (03:28→22:08)
[2020-06-16 04:47] LABS: BASOPHILS % 0.1 % (0.0-1.0); EOSINOPHILS # (AUTO) 0.2 (0.0-0.4); EOSINOPHILS % 1.5 % (0.0-6.0); HEMATOCRIT 23.6 % (38.2-49.6); HEMOGLOBIN 7.7 g/dL (14.0-18.0); LYMPHOCYTES # (AUTO) 1.6 (1.0-3.2); LYMPHOCYTES % 11.9 % (18.0-39.1); MEAN CORPUSCULAR HEMOGLOBIN 30.2 pg (28-32); MEAN CORPUSCULAR HGB CONC 32.6 g/dL (31-35); MEAN CORPUSCULAR VOLUME 92.5 fL (81-99); MONOCYTES # (AUTO) 0.8 (0.2-0.8); MONOCYTES % 5.8 % (4.4-11.3); NEUTROPHILS # (AUTO) 10.6 (2.1-6.9); NEUTROPHILS % 78.8 % (38.7-80.0); PLATELET COUNT 329 x10e3/uL (140-360); RED BLOOD COUNT 2.55 x10e6/uL (4.3-5.7); RED CELL DISTRIBUTION WIDTH 16.2 % (11.7-14.4)
[2020-06-16 05:14] LABS: ALANINE AMINOTRANSFERASE 119 IU/L (0-55); ALBUMIN 2.2 g/dL (3.5-5.0); ALBUMIN/GLOBULIN RATIO 0.7 (0.8-2.0); ALKALINE PHOSPHATASE 69 IU/L (40-150); ANION GAP 10.4 mmol/L (8-16); BLOOD UREA NITROGEN 12 mg/dL (7-26); BUN/CREATININE RATIO 17 (6-25); CALCIUM 7.4 mg/dL (8.4-10.2); CARBON DIOXIDE 27 mmol/L (22-29); CHLORIDE 103 mmol/L (98-107); EST GLOMERULAR FILTRATION RATE > 60 ML/MIN (60-); GLUCOSE 94 mg/dL (74-118); MAGNESIUM 1.9 MG/DL (1.3-2.1); PHOSPHORUS 2.1 MG/DL (2.3-4.7); POTASSIUM 3.4 mmol/L (3.5-5.1); SODIUM 137 mmol/L (136-145)
[2020-06-16 05:30] LABS: % IRON SATURATION 10 % (15-50); IRON 21 ug/dL (65-175); TOTAL IRON BINDING CAPACITY 202 ug/dL (261-478); TRANSFERRIN 144 mg/dL (174-364)
[2020-06-16] MEDS: PANTOPRAZOLE INJ 40 MG in SODIUM CHLORIDE 0.9% 50ML 50 ML IV SCH ×4 (06:03→20:09)
[2020-06-16] MEDS: VANCOMYCIN HCL 125 MG CAPSULE PO SCH ×3 (06:03→22:08)
[2020-06-16] MEDS: METRONIDAZOLE 500MG/NS 100ML 100 ML IV SCH ×3 (06:03→22:08)
[2020-06-16] MEDS: SUCRALFATE 1 GM TAB PO SCH ×4 (07:58→20:09)
[2020-06-16] MEDS: ZINC SULFATE 220 MG CAP PO SCH (09:03)
[2020-06-16] MEDS: ASCORBIC ACID 500 MG TAB PO SCH ×2 (09:03→18:18)
[2020-06-16] MEDS: GUAIFENESIN/CODEINE 10 ML CUP PO PRN (09:07)
[2020-06-16] MEDS ORDERED: CALCIUM GLUCONATE 10% INJ 9.3 MEQ in SODIUM CHLORIDE 0.9% 100 ML 100 ML IV ONE (10:30)
[2020-06-16] MEDS ORDERED: POTASSIUM PHOSPHATE 15 MM in SODIUM CHLORIDE 0.9% 250ML 250 ML IV ONE (13:30)
[2020-06-16] MEDS ORDERED: ACETAMINOPHEN 325 MG TAB PO ONE (14:00)
[2020-06-16] MEDS ORDERED: SODIUM CHLORIDE 0.9% 250ML 250 ML IV ONE (14:05)
[2020-06-16] MEDS: ENOXAPARIN SOD INJ 40 MG/0.4 ML SYR SC SCH (18:18)
[2020-06-17] VITALS (26 sets, daily range): BP systolic 86–135; BP diastolic 51–85
[2020-06-17] MEDS: PANTOPRAZOLE INJ 40 MG in SODIUM CHLORIDE 0.9% 50ML 50 ML IV SCH ×2 (01:31→06:47)
[2020-06-17] MEDS: METOCLOPRAMIDE HCL 10 MG/2ML VIAL IV SCH ×4 (04:05→22:02)
[2020-06-17] MEDS: METRONIDAZOLE 500MG/NS 100ML 100 ML IV SCH ×2 (05:46→14:39)
[2020-06-17] MEDS: VANCOMYCIN HCL 125 MG CAPSULE PO SCH ×3 (05:46→22:02)
[2020-06-17 06:00] LABS: ALANINE AMINOTRANSFERASE 102 IU/L (0-55); ALBUMIN 2.3 g/dL (3.5-5.0); ALBUMIN/GLOBULIN RATIO 0.8 (0.8-2.0); ALKALINE PHOSPHATASE 77 IU/L (40-150); ANION GAP 10.4 mmol/L (8-16); BLOOD UREA NITROGEN 11 mg/dL (7-26); BUN/CREATININE RATIO 15 (6-25); CALCIUM 7.7 mg/dL (8.4-10.2); CARBON DIOXIDE 27 mmol/L (22-29); CHLORIDE 104 mmol/L (98-107); CREATININE, SERUM 0.73 mg/dL (0.72-1.25); EST GLOMERULAR FILTRATION RATE > 60 ML/MIN (60-); GLUCOSE 115 mg/dL (74-118); MAGNESIUM 1.9 MG/DL (1.3-2.1); PHOSPHORUS 2.2 MG/DL (2.3-4.7); POTASSIUM 3.4 mmol/L (3.5-5.1); SODIUM 138 mmol/L (136-145)
[2020-06-17] MEDS: SUCRALFATE 1 GM TAB PO SCH ×4 (07:47→20:57)
[2020-06-17] MEDS: ASCORBIC ACID 500 MG TAB PO SCH ×2 (09:08→17:24)
[2020-06-17] MEDS: ZINC SULFATE 220 MG CAP PO SCH (09:08)
[2020-06-17] MEDS: IRON SUCROSE 100 MG in SODIUM CHLORIDE 0.9% 100 ML 100 ML IV SCH (10:34)
[2020-06-17] MEDS: PANTOPRAZOLE 40 MG 10ML VIAL IV SCH ×2 (10:38→17:24)
[2020-06-17 12:42] LABS: BASOPHILS % 0.2 % (0.0-1.0); EOSINOPHILS # (AUTO) 0.2 (0.0-0.4); EOSINOPHILS % 1.6 % (0.0-6.0); HEMATOCRIT 26.6 % (38.2-49.6); HEMOGLOBIN 8.7 g/dL (14.0-18.0); LYMPHOCYTES # (AUTO) 1.4 (1.0-3.2); LYMPHOCYTES % 11.6 % (18.0-39.1); MEAN CORPUSCULAR HEMOGLOBIN 29.5 pg (28-32); MEAN CORPUSCULAR HGB CONC 32.7 g/dL (31-35); MEAN CORPUSCULAR VOLUME 90.2 fL (81-99); MONOCYTES # (AUTO) 0.9 (0.2-0.8); MONOCYTES % 7.5 % (4.4-11.3); NEUTROPHILS # (AUTO) 9.6 (2.1-6.9); NEUTROPHILS % 77.7 % (38.7-80.0); PLATELET COUNT 336 x10e3/uL (140-360); RED BLOOD COUNT 2.95 x10e6/uL (4.3-5.7); RED CELL DISTRIBUTION WIDTH 17.2 % (11.7-14.4)
[2020-06-17] MEDS ORDERED: POTASSIUM CHLORIDE 20MEQ/100ML 100 ML IV ONE (15:30)
[2020-06-17] MEDS: ENOXAPARIN SOD INJ 40 MG/0.4 ML SYR SC SCH (17:24)
[2020-06-17] MEDS: GUAIFENESIN/CODEINE 10 ML CUP PO PRN (17:54)
[2020-06-18] VITALS (26 sets, daily range): BP systolic 103–148; BP diastolic 50–88
[2020-06-18] MEDS: METOCLOPRAMIDE HCL 10 MG/2ML VIAL IV SCH ×4 (04:10→22:49)
[2020-06-18] MEDS: VANCOMYCIN HCL 125 MG CAPSULE PO SCH (05:44)
[2020-06-18 05:49] LABS: BASOPHILS % 0.2 % (0.0-1.0); EOSINOPHILS # (AUTO) 0.2 (0.0-0.4); EOSINOPHILS % 1.7 % (0.0-6.0); HEMATOCRIT 26.1 % (38.2-49.6); HEMOGLOBIN 8.5 g/dL (14.0-18.0); LYMPHOCYTES # (AUTO) 1.4 (1.0-3.2); LYMPHOCYTES % 13.6 % (18.0-39.1); MEAN CORPUSCULAR HEMOGLOBIN 29.7 pg (28-32); MEAN CORPUSCULAR HGB CONC 32.6 g/dL (31-35); MEAN CORPUSCULAR VOLUME 91.3 fL (81-99); MONOCYTES # (AUTO) 0.9 (0.2-0.8); MONOCYTES % 8.7 % (4.4-11.3); NEUTROPHILS # (AUTO) 7.8 (2.1-6.9); NEUTROPHILS % 74.5 % (38.7-80.0); PLATELET COUNT 343 x10e3/uL (140-360); RED BLOOD COUNT 2.86 x10e6/uL (4.3-5.7); RED CELL DISTRIBUTION WIDTH 17.2 % (11.7-14.4)
[2020-06-18 06:06] LABS: ANION GAP 12.5 mmol/L (8-16); BLOOD UREA NITROGEN 6 mg/dL (7-26); BUN/CREATININE RATIO 9 (6-25); CALCIUM 7.7 mg/dL (8.4-10.2); CARBON DIOXIDE 27 mmol/L (22-29); CHLORIDE 104 mmol/L (98-107); CREATININE, SERUM 0.66 mg/dL (0.72-1.25); EST GLOMERULAR FILTRATION RATE > 60 ML/MIN (60-); GLUCOSE 98 mg/dL (74-118); POTASSIUM 3.5 mmol/L (3.5-5.1); SODIUM 140 mmol/L (136-145)
[2020-06-18] MEDS: SUCRALFATE 1 GM TAB PO SCH ×4 (07:38→21:45)
[2020-06-18] MEDS: PANTOPRAZOLE 40 MG 10ML VIAL IV SCH ×2 (09:26→17:14)
[2020-06-18] MEDS: ZINC SULFATE 220 MG CAP PO SCH (09:26)
[2020-06-18] MEDS: ASCORBIC ACID 500 MG TAB PO SCH ×2 (09:26→17:14)
[2020-06-18] MEDS ORDERED: SODIUM CHLORIDE 0.9% 1000ML 1,000 ML ONE (09:39)
[2020-06-18] MEDS: IRON SUCROSE 100 MG in SODIUM CHLORIDE 0.9% 100 ML 100 ML IV SCH (11:13)
[2020-06-18] MEDS: GUAIFENESIN/CODEINE 10 ML CUP PO PRN ×2 (12:32→22:51)
[2020-06-18] MEDS: ENOXAPARIN SOD INJ 40 MG/0.4 ML SYR SC SCH (17:14)
[2020-06-19] VITALS (15 sets, daily range): BP systolic 95–119; BP diastolic 49–82
[2020-06-19] MEDS: METOCLOPRAMIDE HCL 10 MG/2ML VIAL IV SCH ×2 (04:59→09:01)
[2020-06-19] MEDS: ACETAMINOPHEN 325 MG TAB PO PRN (05:00)
[2020-06-19 05:16] LABS: BASOPHILS % 0.1 % (0.0-1.0); EOSINOPHILS # (AUTO) 0.3 (0.0-0.4); EOSINOPHILS % 2.7 % (0.0-6.0); HEMATOCRIT 27.2 % (38.2-49.6); HEMOGLOBIN 8.5 g/dL (14.0-18.0); LYMPHOCYTES # (AUTO) 1.5 (1.0-3.2); LYMPHOCYTES % 15.1 % (18.0-39.1); MEAN CORPUSCULAR HEMOGLOBIN 29.1 pg (28-32); MEAN CORPUSCULAR HGB CONC 31.3 g/dL (31-35); MEAN CORPUSCULAR VOLUME 93.2 fL (81-99); MONOCYTES # (AUTO) 0.8 (0.2-0.8); NEUTROPHILS # (AUTO) 7.1 (2.1-6.9); NEUTROPHILS % 73.3 % (38.7-80.0); PLATELET COUNT 340 x10e3/uL (140-360); RED BLOOD COUNT 2.92 x10e6/uL (4.3-5.7); RED CELL DISTRIBUTION WIDTH 17.2 % (11.7-14.4)
[2020-06-19 05:39] LABS: ANION GAP 9.7 mmol/L (8-16); BLOOD UREA NITROGEN 6 mg/dL (7-26); BUN/CREATININE RATIO 9 (6-25); CALCIUM 7.6 mg/dL (8.4-10.2); CARBON DIOXIDE 28 mmol/L (22-29); CHLORIDE 104 mmol/L (98-107); CREATININE, SERUM 0.68 mg/dL (0.72-1.25); EST GLOMERULAR FILTRATION RATE > 60 ML/MIN (60-); GLUCOSE 107 mg/dL (74-118); POTASSIUM 3.7 mmol/L (3.5-5.1); SODIUM 138 mmol/L (136-145)
[2020-06-19] MEDS: SUCRALFATE 1 GM TAB PO SCH ×2 (07:58→11:19)
[2020-06-19] MEDS: PANTOPRAZOLE 40 MG 10ML VIAL IV SCH (08:58)
[2020-06-19] MEDS: ASCORBIC ACID 500 MG TAB PO SCH (08:58)
[2020-06-19] MEDS: ZINC SULFATE 220 MG CAP PO SCH (08:58)
[2020-06-19] MEDS: IRON SUCROSE 100 MG in SODIUM CHLORIDE 0.9% 100 ML 100 ML IV SCH (09:01)
[2020-06-19] MEDS: GUAIFENESIN/CODEINE 10 ML CUP PO PRN (14:32)
== END 2020-06-19 14:45 | DRG 871 ==
LOC: ER 02:52 → ERHOLD 06:27 → COVIDICU 07:48 → ICU 06-12 11:28
PROVIDERS: ADMIT Family Medicine; ATTEND Family Medicine
PROC: XW033E5 Introduction of Remdesivir Anti-infective into Peripheral Vein, Percutaneous Approach, New Technology Group 5 (ICD-10-PCS; 2020-06-03)
PROC: 3E0333Z Introduction of Anti-inflammatory into Peripheral Vein, Percutaneous Approach (ICD-10-PCS; 2020-06-03)
PROC: 02HV33Z Insertion of Infusion Device into Superior Vena Cava, Percutaneous Approach (ICD-10-PCS; principal; 2020-06-05)
PROC: B548ZZA Ultrasonography of Superior Vena Cava, Guidance (ICD-10-PCS; 2020-06-05)
PROC: 30233N1 Transfusion of Nonautologous Red Blood Cells into Peripheral Vein, Percutaneous Approach (ICD-10-PCS; 2020-06-11)
DX: A41.9 Sepsis, unspecified organism (principal); U07.1 COVID-19; J12.82 Pneumonia due to coronavirus disease 2019; I26.99 Other pulmonary embolism without acute cor pulmonale; J96.01 Acute respiratory failure with hypoxia; J15.9 Unspecified bacterial pneumonia; R57.1 Hypovolemic shock; E43 Unspecified severe protein-calorie malnutrition; N17.0 Acute kidney failure with tubular necrosis; K57.92 Diverticulitis of intestine, part unspecified, without perforation or abscess without bleeding; E87.1 Hypo-osmolality and hyponatremia; D62 Acute posthemorrhagic anemia; K92.2 Gastrointestinal hemorrhage, unspecified; N17.9 Acute kidney failure, unspecified; A04.72 Enterocolitis due to Clostridium difficile, not specified as recurrent; E87.0 Hyperosmolality and hypernatremia; E66.01 Morbid (severe) obesity due to excess calories; Z68.39 Body mass index [BMI] 39.0-39.9, adult; E87.6 Hypokalemia; D64.9 Anemia, unspecified; K21.9 Gastro-esophageal reflux disease without esophagitis; E88.09 Other disorders of plasma-protein metabolism, not elsewhere classified; E83.39 Other disorders of phosphorus metabolism; E83.51 Hypocalcemia
CPT/HCPCS: 36415; 36569; 71045; 71260; 74022; 78278; 80048; 80053; 82150; 82270; 82550; 82553; 82607; 82746; 82805; 82948; 83540; 83605; 83690; 83735; 83880; 84100; 84466; 84484; 85025; 85045; 85379; 85610; 85730; 86850; 86900; 86920; 87040; 93005; 93306; 93970; 99251; 99285; A9512; J0456; J0610; J0696; J1100; J1170; J1650; J1756; J1885; J2405; J2543; J2765; J2997; J3010; J3430; J3480; J7030; J7050; J7121; P9016; Q9967; U0002